=== PATIENT | female | born 1990 | race Asian ===

== ENCOUNTER → 2022-01-09 07:14 | Outpatient (CLI) | payer BC, SELFPAY ==
--- NOTE | ~2022-01-09 | XR_ITS ---
EXAMINATION: XR chest 2V 01/09/2022 08:05 INDICATION: Chronic cough PROCEDURE: 2 view chest COMPARISON: No prior studies for comparison. FINDINGS: The lungs are clear. The cardiomediastinal silhouette is within normal limits. There are no pleural effusions. There is no pneumothorax suspected. IMPRESSION: 1: NO ACUTE CARDIOPULMONARY DISEASE. Reviewed, dictated and finalized at location D.
== END ==
PROVIDERS: PCP Family Medicine; Visit Provider Family Medicine
DX: R05.3 Chronic cough (principal)
CPT/HCPCS: 71046

== ENCOUNTER 2022-01-12 10:02 | Emergency (ER) | payer BC, SELFPAY ==
--- NOTE | 2022-01-12 10:21 | ED.URI ---
HPI - URI/Sore Throat General Chief Complaint: Upper Respiratory Infection Stated Complaint: cough Time Seen by Provider: 01/12/22 10:21 Source: patient Mode of arrival: ambulatory Limitations: no limitations History of Present Illness HPI Narrative: Ms. Oneil is a 31-year-old female patient presenting to the clinic today with complaints of a cough since August She reports she had COVID in August and has had this cough ever since. She just seen her PCP 3 days ago and was given prescription for a Z-Jason and she had an x-ray done. She is currently using albuterol inhaler which does help for a couple hours. She has not been on any steroids at all. Her x-ray was negative for any acute cardiopulmonary disease per Dr. Elam on 09 January. Patient reports that her cough continues and that she is having difficulty when laying down as she is coughing excessively. She reports that she is bringing up clear phlegm with her cough. She denies any fever or chills. Related Data Home Medications Medication Instructions Recorded Confirmed albuterol sulfate 90 mcg/actuation 2 puff inhalation Q4H 12/25/21 01/12/22 aerosol inhaler azithromycin 250 mg tablet 1 mg PO DIRECTED 01/12/22 01/12/22 (Zithromax Z-Jason) norethindrone 1 mg-ethinyl 1 tablet DAILY 01/12/22 01/12/22 estradiol 20 mcg (24)-iron 75 mg (4) tablet (Blisovi 24 Fe) Allergies Allergy/AdvReac Type Severity Reaction Status Date / Time No Known Allergies Allergy Verified 01/12/22 10:35 Review of Systems Review of Systems: Pertinent positives per HPI. Patient denies any fever, chills, rash, headache, visual changes, dizziness, sore throat, shortness of breath, chest pain, palpitations, nausea, vomiting, diarrhea, constipation, abdominal pain, or any urinary issues. [facility] Past Medical History Medical History COVID-19 GERD without esophagitis Rhinorrhea Family History Family History Father Hypertension Other Diabetes mellitus Social History Social History Second hand tobacco smoke exposure: No Alcohol intake: never Comments At the time of my signature, I reviewed and agree with the nursing past medical, surgical, social, and family history. There is no relevant family history pertinent to the patient complaint. Exam Narrative: General: Well-developed, well nourished, in no apparent distress Head: Normocephalic, atraumatic Eyes: Pupils equally round and reactive to light bilaterally, EOM intact, sclera and conjunctive clear, no discharge, lids normal Ears: TMs intact and clear, ear canals clear, no drainage, grossly hearing normal. Nose: Nares patent, no discharge, no inflammation, no sinus tenderness. Mouth: Oropharynx without lesions or masses, good dentition, MMM. Neck: Supple, trachea midline, no enlargement of anterior or posterior cervical nodes, no thyroid masses or goiter palpable. Cardio: Regular rate and rhythm, s1 and s2 normal, no murmur appreciated. Resp: Inspiratory expiratory rhonchi over the left posterior midlower lobe, lung sounds diminished, unable to take deep breaths without having bronchospasms, rales, wheezing or rubs. SPO2 100% on room air in the clinic Course Course Emergency Course: Portions of this record may have been created with voice recognition software. Level of Care: Express Care Visit Vital Signs Vital signs: Vital signs reviewed MDM - URI/Sore Throat MDM Narrative Medical decision making narrative: At the time of visit patient is resting comfortably on the exam table. Patient is currently taking albuterol inhaler and a Z-Jason. Her SPO2 was 100% on room air in the clinic. She is unable to take a deep breath due to bronchospasms and she is feeling short of breath with this cough. Cough is productive with clear p
[2022-01-12 10:31] VITALS: BP 119/78; PULSE 80; RESP 18; TEMP 37.6; O2SAT 100
== END 2022-01-12 10:52 | disposition home or self-care (01) ==
PROVIDERS: Emergency Provider Nurse Practitioner Family; PCP Family Medicine
DX: R05.9 Cough, unspecified (principal); U09.9 Post COVID-19 condition, unspecified; J40 Bronchitis, not specified as acute or chronic; J98.01 Acute bronchospasm; K21.9 Gastro-esophageal reflux disease without esophagitis
CPT/HCPCS: 99213; G0463

== ENCOUNTER 2022-02-15 07:02 | Outpatient (CLI) | payer BC, SELFPAY ==
[2022-02-18 23:30] LABS: Immunoglobulin E <2 kU/L (<=114)
[2022-02-19 06:34] LABS: Alpha-1-Antitrypsin, QN 213 mg/dL (83-199)
== END 2022-02-15 07:03 | disposition home or self-care (01) ==
LOC: ANHLAB 07:04
PROVIDERS: PCP Family Medicine; Visit Provider Internal Medicine Critical Care Medicine
DX: U09.9 Post COVID-19 condition, unspecified (principal); R05.3 Chronic cough
CPT/HCPCS: 36415; 82103; 82104; 82785

== ENCOUNTER 2022-02-16 09:49 | Outpatient (CLI) | payer BC, SELFPAY ==
--- NOTE | 2022-02-23 15:55 | P.PCNPFT_ITS ---
PFT Procedure Performed PFT Procedure Performed Spirometry with Pre/Post Bronchodilator Plethysmography (Lung Vol) Diffusing Cap (DLCO) Flow Vol Loop PFT Interpretation DOS: 02/16/2022 REQUESTING: Dr Worley REASON FOR TESTING: Chronic cough PULMONARY FUNCTION TESTS Results are reliable and reproducible. This patient had COVID August 2021. Spirometry: Pre bronchodilator FEV1 is 81%, 2.93 L, within the normal range. pre bronchodilator FVC is 91%, 3.95 L, normal. FEV1/FVC is 74%, within the n ormal range. QYT31-36% is 62%, 2.37 L, below normal. After bronchodilator administration there is a 10% increase in the FEV1 which does not meet ATS criteria for significance. The post bronchodilator FEV1 is 3.22 L 290 mL. The FVC increases by 2% essentially unchanged. The HML56-60% increases by 35% and is now 3.2 L which is in the normal range. This pattern is consistent with small airways obstruction with good response to bronchodilator Lung volumes: Total lung capacity is 88%, 4.97 L, normal. Functional reserve capacity 86%, 2.71 L, normal. ERV 99%, 1.37 L, normal. Residual volume 62%, 1.01 L, normal. RV/TLC is 20%, normal. There is no hyperinflation or air trapping. Raw is 123%, normal. Diffusion: DLCO is 106%, normal. DLCO/VA is 125%. Flow volume loop: Normal. IMPRESSION: This study shows a small airway obstructive pattern with good response to bronchodilator, normal lung volumes and normal diffusion. In the proper clinical setting this may be compatible with asthma. Lack of response to bronchodilator should not preclude use if clinically indicated. Shari Worley MD
--- NOTE | 2022-02-26 16:46 | WPDPFTINT ---
PFT Procedure Performed PFT Procedure Performed Spirometry with Pre/Post Bronchodilator Plethysmography (Lung Vol) Diffusing Cap (DLCO) Flow Vol Loop PFT Interpretation This is a pulmonary function test with pre and post-bronchodilator spirometry, plethysmography and diffusing capacity. The test was performed and results interpreted in accordance with the 2019 and 2005 ATS/ERS Task Force guidelines respectively using the Global Lung Function Initiative-2012 reference equations. Patient demonstrated good effort and cooperation. Reproducibility criteria were met. The quality of the pre bronchodilator spirometry maneuver was Grade A and post bronchodilator spirometry maneuver was Grade A. Findings: Spirometry: The contour the inspiratory and expiratory flow tracing are normal. The pre bronchodilator FVC is 3.96 L, 91% predicted. The pre bronchodilator FEV1 is 2.93 L, 81% predicted. The pre bronchodilator FEV1: FVC ratio 74%. The post bronchodilator FVC is 4.03 L, representing a 2% increase. The post bronchodilator FEV1 is 3.22 L, representing a 10% increase. The post bronchodilator FEV1: FVC ratio is 80%. Plethysmography: The total lung capacity is 4.97 L, 88% predicted. The functional residual capacity is 2.71 L, 86% predicted. The residual volume is 1.01 L, 62% predicted. Diffusion capacity: The diffusion capacity unadjusted for hemoglobin and carboxyhemoglobin is 28.0, 106% predicted. The diffusion capacity adjusted for alveolar volume is 5.87, 125% predicted. Impression: The spirometry is normal without evidence of an obstructive abnormality. There is no significant improvement after inhaling a single dose of albuterol. The lung volumes are normal. The diffusing capacity is normal. There are no prior studies for comparison
== END 2022-02-16 09:50 | disposition home or self-care (01) ==
LOC: ANHPFT 09:51
PROVIDERS: PCP Family Medicine; Visit Provider Internal Medicine Critical Care Medicine
DX: R05.3 Chronic cough (principal); U09.9 Post COVID-19 condition, unspecified
CPT/HCPCS: 94060; 94726; 94729

== ENCOUNTER 2022-03-05 13:32 | Outpatient (CLI) | payer BC, SELFPAY ==
--- NOTE | ~2022-03-05 | CT_ITS ---
EXAMINATION:CT chest high resolution [facility] DATE: 03/05/2022 13:48 INDICATION: Chronic cough. TECHNIQUE: Computed tomography (CT) of the chest was performed without intravenous contrast. Automate d exposure control and iterative reconstruction technique were employed. The dose-length product (DLP ) was 149.67 mGy-cm. COMPARISON: Chest 2 views 01/09/22 FINDINGS: The lungs are normal. No pleural effusion. The heart size is normal. No pericardial effusio n. There are healing fractures of the right third and sixth ribs. IMPRESSION: 1. Normal lungs. Reviewed, dictated and finalized at location A. IMPRESSION: 1. Normal lungs.
== END 2022-03-05 13:33 | disposition home or self-care (01) ==
PROVIDERS: PCP Family Medicine; Visit Provider Internal Medicine Critical Care Medicine
DX: R05.3 Chronic cough (principal); U09.9 Post COVID-19 condition, unspecified
CPT/HCPCS: 71250

== ENCOUNTER 2022-11-16 08:03 | Emergency (ER) | payer BC, SELFPAY ==
--- NOTE | 2022-11-16 08:09 | ED.URI ---
HPI - URI/Sore Throat General Chief Complaint: Upper Respiratory Infection Stated Complaint: cough,sorethroat,bilateral earache Time Seen by Provider: 11/16/22 08:10 Source: patient Mode of arrival: ambulatory Limitations: no limitations History of Present Illness HPI Narrative: Yulisa is a 32-year-old female patient presenting to the clinic today with complaints of cough, sore throat, and bilateral ear pain times 1 week. She reports she is bringing up some thick lorenzo phlegm. She denies any fever or chills. Denies any shortness of breath but does feel nasally congested. States she just got back from [place]. History of asthma. MD elicited complaint: sore throat and nasal congestion Related Data Allergies Allergy/AdvReac Type Severity Reaction Status Date / Time No Known Allergies Allergy Verified 11/16/22 08:21 Review of Systems Review of Systems: Pertinent positives per HPI. Patient denies any fever, chills, rash, headache, visual changes, dizziness, shortness of breath, chest pain, palpitations, nausea, vomiting, diarrhea, constipation, abdominal pain, or any urinary issues. PMFSH Past Medical History Medical History COVID-19 GERD without esophagitis Rhinorrhea Family History Family History Father Hypertension Other Diabetes mellitus Social History Social History Smoking status: Never smoker Second hand tobacco smoke exposure: No Alcohol intake: never Substance use: never Substance use type: does not use Lack of Transportation: No Lack of Food: Never True Current Housing: I Have Housing Concerned About Future Housing: No Difficulty Paying Gas/Electric Bills: No Difficulty Paying for Meds: No Currently Unemployed: No Education: High School Diploma/GED Difficulty w/ Childcare or Family Care: No Occupation/Education: occupation Gender identity (if verbalized by the patient): Female Agree to blood products: Yes Comments At the time of my signature, I reviewed and agree with the nursing past medical, surgical, social, and family history. There is no relevant family history pertinent to the patient complaint. Exam Narrative: General: Well-developed, well nourished, in no apparent distress Head: Normocephalic, atraumatic Eyes: Pupils equally round and reactive to light bilaterally, EOM intact, sclera and conjunctive clear, no discharge, lids normal Ears: TMs intact and clear, ear canals clear, no drainage, grossly hearing normal. Nose: Nares patent, clear nasal discharge, no inflammation, no sinus tenderness. Mouth: Oral pharynx mildly red without lesions or masses, good dentition, MMM. Postnasal drip Neck: Supple, trachea midline, no enlargement of anterior or posterior cervical nodes, no thyroid masses or goiter palpable. Cardio: Regular rate and rhythm, s1 and s2 normal, no murmur appreciated. Resp: Clear to auscultation bilaterally, no rhonchi, rales, wheezing or rubs Course Course Emergency Course: Portions of this record may have been created with voice recognition software. Level of Care: Express Care Visit Vital Signs Vital signs: Vital signs reviewed MDM - URI/Sore Throat MDM Narrative Medical decision making narrative: At the time of visit patient is resting comfortably on the exam table. Strep screen was negative in the clinic today. I suspect patient has an upper respiratory infection. Lung sounds are clear in the clinic today. Will send in prescription for prednisone to help with the nasal congestion. Supportive measures were discussed with the patient she voiced understanding of discharge instructions and agrees to treatment plan Differential Diagnosis Differential diagnosis: Likely upper respiratory infection, otitis media, sinusitis, viral infection, bronchi
[2022-11-16 08:16] VITALS: BP 125/68; PULSE 111; RESP 18; TEMP 37.4; O2SAT 98
== END 2022-11-16 08:39 | disposition home or self-care (01) ==
PROVIDERS: Emergency Provider Nurse Practitioner Family; PCP Family Medicine
DX: J06.9 Acute upper respiratory infection, unspecified (principal); R05.9 Cough, unspecified; K21.9 Gastro-esophageal reflux disease without esophagitis; Z86.16 Personal history of COVID-19; J45.909 Unspecified asthma, uncomplicated
CPT/HCPCS: 87081; 87880; 99213; G0463

== ENCOUNTER 2023-01-29 10:58 | Outpatient (CLI) | payer BC, SELFPAY | END 2023-01-29 10:59 | PROVIDERS: PCP Family Medicine; Visit Provider Family Medicine | DX: M79.672 Pain in left foot (principal) | CPT/HCPCS: 73630 ==

== ENCOUNTER → 2023-04-09 11:04 | Outpatient (CLI) | payer BC, SELFPAY ==
--- NOTE | ~2023-04-09 | XR_ITS ---
EXAMINATION:XR_[id number]_CR DATE: 04/09/2023 11:28 INDICATION: Neck pain TECHNIQUE: AP, lateral, and odontoid views of the cervical spine are provided. COMPARISON: None FINDINGS: Alignment is normal. The odontoid process is intact. No fracture is identified. Vertebral b brandyn heights and disk spaces are normal. Prevertebral soft tissues are normal. Small degenerative oste ophytes project from the anterior endplates of multiple vertebral bodies. IMPRESSION: 1. No acute osseous abnormality. Reviewed, dictated and finalized at location L.
== END ==
PROVIDERS: PCP Family Medicine; Visit Provider Family Medicine
DX: M54.2 Cervicalgia (principal)
CPT/HCPCS: 72040

== ENCOUNTER 2024-07-04 12:08 | Emergency (ER) | payer BC, SELFPAY ==
[2024-07-04 12:23] VITALS: BP 137/89; PULSE 89; RESP 16; TEMP 36.6; O2SAT 100
--- NOTE | 2024-07-04 12:51 | ED.NECK ---
HPI - Neck Pain/Injury General Chief Complaint: Neck Pain/Injury Stated Complaint: Neck Pain/Headache Time Seen by Provider: 07/04/24 12:35 Source: patient Mode of arrival: ambulatory Limitations: no limitations History of Present Illness HPI Narrative: Yulisa is a 33-year-old female patient presenting to the clinic today with complaints right-sided neck pain causing her headache. She reports symptoms started approximately 5 days ago however headache started yesterday. States is painful to turn her head from side to side as she is having pain on the right side of the neck. Has been taking ibuprofen for her symptoms without much relief. Denies any numbness or tingling going down her right arm. Denies any chest pain or shortness of breath. Related Data Home Medications Medication Instructions Recorded Confirmed drospiren-e.estrad-l.mefol 3 1 tablet PO DAILY 04/03/24 04/03/24 mg-0.02 mg-0.451 mg(24)/0.451 mg(4)tablet Allergies Allergy/AdvReac Type Severity Reaction Status Date / Time No Known Allergies Allergy Verified 04/03/24 07:54 Review of Systems Review of Systems: Pertinent positives per HPI. Patient denies any fever, chills, rash, headache, visual changes, dizziness, cough, shortness of breath, chest pain, palpitations, nausea, vomiting, diarrhea, constipation, abdominal pain, or any urinary issues. [facility] Past Medical History Medical History Anxiety Asthma COVID-19 Depression with anxiety Elevated cortisol level Fatigue GERD without esophagitis Night sweat Rhinorrhea Vitamin D deficiency Family History Family History Father Hypertension Other Diabetes mellitus Social History Social History (Updated 04/03/24 @ 07:58 by Luda Thomas) Social History: Caffeine-coffee Smoking status: Never smoker Second hand tobacco smoke exposure: No Alcohol intake: never Substance use: never Substance use type: does not use Do You Feel Safe in your Home?: Yes Lack of Transportation: No Lack of Food: Never True Current Housing: I Have Housing Concerned About Future Housing: No Difficulty Paying Gas/Electric Bills: No Difficulty Paying for Meds: No Currently Unemployed: No Education: High School Diploma/GED Difficulty w/ Childcare or Family Care: No Occupation/Education: occupation Gender identity (if verbalized by the patient): Female Agree to blood products: Yes Comments At the time of my signature, I reviewed and agree with the nursing past medical, surgical, social, and family history. There is no relevant family history pertinent to the patient complaint. Exam Narrative: General: Well-developed, well nourished, in no apparent distress Head: Normocephalic, atraumatic Eyes: Pupils equally round and reactive to light bilaterally, EOM intact, sclera and conjunctive clear, no discharge, lids normal Ears: TMs intact and clear, ear canals clear, no drainage, grossly hearing normal. Nose: Nares patent, no discharge, no inflammation, no sinus tenderness. Mouth: Oral pharynx without lesions or masses, good dentition, MMM. Neck: Supple, trachea midline, no enlargement of anterior or posterior cervical nodes, tenderness to palpation over the posterior lateral right cervical musculature, pain with turning her head to the right against resistance, slight discomfort with hyperextension and flexion of the neck no thyroid masses or goiter palpable. Cardio: Regular rate and rhythm, s1 and s2 normal, no murmur appreciated. Resp: Clear to auscultation bilaterally, no rhonchi, rales, wheezing or rubs Course Course Emergency Course: Portions of this record may have been created with voice recognition software. Level of Care: Express Care Visit Vital Signs Vital signs: Vital Signs Temperature 36.6 C 07/04/24 12:23 Pulse Rate 89 07/04/24 12:23 Respiratory Rate 16 07/04/24 12:23 Blood Pressure 137/89 07/04/24 12:23 Pulse Oximetry 100 07/04/24 12:23 Temperature 36.6 C 07/04/24 12:23 Pulse Rate 89 07/04/24 12:23 Respiratory Rate 16 07/04/24 12:23 Blood Pressure 137/89 07/04/24 12:23 Pulse Oximetry 100 07/04/24 12:23 Vital signs reviewed MDM - Neck Pain/Injury MDM Narrative Medical decision making narrative: At the time of visit patient is resting comfortably on the exam table. Patient appears to be nontoxic. Plan: I suspect patient has right-sided posterior lateral cervical strain. Prescription for baclofen and ibuprofen was sent to the pharmacy. Supportive measures were discussed with the patient and they voiced understanding discharge instructions and agrees to treatment plan. Return precautions reviewed Differential Diagnosis Differential diagnosis: Likely disc disorder of cervical region, whiplash injury to neck, closed subluxation of cervical spine, fracture of cervical spine without lesion of spinal cord, cervical radiculopathy, vertebral artery dissection, torticollis, cervical spondylosis and strain of neck muscle Discharge Plan Discharge Clinical Impression: Posterolateral cervical muscle strain Patient Disposition: Home, Self-Care Condition: Stable Instructions: Antibiotic Form, Cervical Strain (ED) Additional Instructions: Take any prescription medication only as prescribed-ibuprofen and baclofen Be mindful of sedation precautions given to you if taking a muscle relaxer. May use heat or ice to the affected area Consider massage or chiropractor adjustment if this was discussed with provider May use blue emu, lidocaine patches, or asper cream to affected area- do not apply heat or ice directly over cream- can cause burn. Complete appropriate neck stretching exercises. Follow up with your PCP in 3-5 days if symptom persist. Prescriptions: New ibuprofen 800 mg tablet 800 mg PO TID PRN (Reason: pain) 7 Days Qty: 21 0RF baclofen 10 mg tablet 10 mg PO TID PRN (Reason: muscle spasm) 7 Days Qty: 21 0RF No Action fluoxetine [Prozac] 20 mg capsule 20 mg PO DAILY Qty: 90 1RF drospirenone-e.estradiol-lm.FA 3-0.02-0.451 mg (24) (4) tablet 1 tablet PO DAILY (DME) Insoles See Rx Instructions .Route .MEDSUPPLY Qty: 1 0RF Rx Instructions: CPT L3000 Follow-up/Referrals: Lalo Higuera MD [Primary Care Provider] - Time of Disposition: 12:53 Quality NIHSS Nursing Documentation ED NIHSS nursing documentation: reviewed/agree
== END 2024-07-04 13:00 | disposition home or self-care (01) ==
PROVIDERS: Emergency Provider Nurse Practitioner Family; PCP Family Medicine
DX: S16.1XXA Strain of muscle, fascia and tendon at neck level, initial encounter (principal); X58.XXXA Exposure to other specified factors, initial encounter; J45.909 Unspecified asthma, uncomplicated; K21.9 Gastro-esophageal reflux disease without esophagitis; Z86.16 Personal history of COVID-19
CPT/HCPCS: 99213; G0463

== ENCOUNTER 2024-10-28 08:39 | Outpatient (CLI) | payer BC, SELFPAY ==
--- NOTE | ~2024-10-28 | MMUS_ITS ---
EXAMINATION: MM diagnostic monika BI w godfrey, US breast BI limited HISTORY: 34-year-old woman with no significant family or personal history of breast cancer presents w ith right inferior breast pain. No history of trauma TECHNIQUE: Craniocaudal and mediolateral oblique 3-D tomosynthesis images were obtained and synthetic 2-D images were generated. CAD analysis was submitted and interpreted. High resolution limited bilateral breast ultrasound was performed. COMPARISON: None. Today's examination will be treated as patient's baseline study. BREAST PARENCHYMAL COMPOSITION:Dense: The breasts are heterogeneously dense, which may obscure small masses. FINDINGS: MAMMOGRAPHIC FINDINGS: Possible asymmetry within the upper outer left breast approximately 4 to 5 cm from the nipple for whi ch focused ultrasound will be performed. Additional possible asymmetry within the lower outer right breast, for which focused ultrasound will be performed. Punctate calcifications are detected bilaterally, morphologically benign in appearance. Otherwise unremarkable parenchymal pattern without suspicious microcalcifications or architectural di stortion. ULTRASOUND: Within the area of clinical concern (the lower right breast) ultrasound demonstrates benign fibroglan dular tissue without a cystic or solid lesion of concern. Within the upper outer left breast approximately 4 to 5 cm from the nipple ultrasound demonstrates ex ceedingly dense fibroglandular tissue with ligamentous thickening, and without a cystic or solid lesi on of concern. IMPRESSION: No mammographic/tomographic or sonographic evidence to suggest the presence of malignancy. Further evaluation of right breast pain should be performed on a clinical basis. Follow-up as per ACR/ACS guidelines is recommended. BI-RADS Category 2: Benign finding(s). Reviewed, dictated and finalized at location A. IMPRESSION: No mammographic/tomographic or sonographic evidence to suggest the presence of malignancy. Further evaluation of right breast pain should be performed on a clinical basis . Follow-up as per ACR/ACS guidelines is recommended. BI-RADS Category 2: Benign finding(s).
== END 2024-10-28 08:40 | disposition home or self-care (01) ==
LOC: MICIMG 08:42
PROVIDERS: PCP Student in an Organized Health Care Education/Training Program; Visit Provider Student in an Organized Health Care Education/Training Program
DX: N64.4 Mastodynia (principal)
CPT/HCPCS: 76642; 77062; 77066; G0279

== ENCOUNTER 2025-03-16 17:57 | Emergency (ER) | payer BC, SELFPAY ==
--- OUTSIDE RECORDS SUMMARY | 2025-03-16 17:59 | XMS_ITS | Patient Health Record ---
Author Organization [facility] As [facility] Address [address] [place] [address] Care Team Providers Care Caseworker Name Role Phone Moose Higuera MD Primary Care Provider Unavailable Meka Bazan Unavailable [phone] Allergies No Known Allergies Results Component Value Reference Range Notes UDT Reviewed date:04/24/2024 09:47:10 AM Interpretation: Performing Lab: Notes/Report: THC n 0 - 50 ng/ml Cocaine n 0 - 300 ng/ml Amphetamine n 0 - 1000 ng/ml Buprenorphine (BUP) n 0 - 10 ng/ml Secobarbital (Bar) n 0 - 300 ng/ml Oxazepam (BZO) n 0 - 300 ng/ml 2-mwvzaynotd-2,3-euxpafii-8,3-diphenylpyrrolidine (BAUDILIO P) n 0 - 300 ng/ml Methamphetamine (MET) n 0 - 1000 ng/ml Methylenedioxymethamphetamine (MDMA) n 0 - 500 ng/ml Morphine (MOP 300/[id number]) n 0 - 300 ng/ml Methadone (MTD) n 0 - 300 ng/ml Phencyclidine (PCP) n 0 - 25 ng/ml Nortriptyline (TCA) n 0 - 1000 ng/ml Oxycodone n 0 - 300 ng/ml x n 0 - 300 ng/ml Test Reviewed date:04/24/2024 09:47:10 AM Interpretation: Performing Lab: Notes/Report: Test urine n 0 - 0 Reason For Referral No Information Medications Medication SIG (Take, Route, Frequency, Duration) Notes Start Date End Date Status Albuterol Sulfate HFA 108 (90 Base) MCG/ACT INHALE 2 PUFFS BY MOUTH EVERY 4 HOURS NEEDED FOR SHORTNESS OF BREATH OR WHEEZING Inhalation; Duration: 16 Days Active Tri-Sprintec 0.18/0.215/0.25 MG-35 MCG 1 tablet Orally Once a day Active QUEtiapine Fumarate 50 MG 1 tablet at be dtime Orally Once a day; Duration: 90 days Active buPROPion HCl ER (XL) 300 MG 1 tablet in the morning Orally Once a day; Duration: 30 days Active buPROPion HCl ER (XL) 300 MG 1 tablet in the morning Orally Once a day; Duration: 90 days Active Social History Tobacco Use: Social History Observation Description Date Details (start date - stop date) Never Smoker NA - NA Sex Assigned At : Social History Observation Description Sex Assigned At Female Tobacco Control (Standard) Question Answer Notes Tobacco use: Nonsmoker AUDIT-C (Standard) Question Answer Notes Did you have a drink containing alcohol in the p ast year? 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) Active confirmed Vital Signs Heart Rate 86 /min 10/07/2024 Height-cm 172.72 cm 10/07/2024 Blood pressure diastolic 84 mm Hg 10/07/2024 Weight-kg 89.81 kg 10/07/2024 Height 68 in 10/07/2024 Blood pressure systolic 125 mm Hg 10/07/2024 Weight 198 lbs 10/07/2024 BMI 30.1 kg/m2 10/07/2024 Encounters Encounter Location Date Provider Diagnosis [facility] [address] [facility] [address] [facility] [address] [place] [address] 04/24/2024 Meka Bazan MDD (major depressive disorder), recurrent severe, without psychosis F33.2 and SAWYER (generalized anxiety disorder) F41.1 [facility] [address] [facility] [address] [facility] [address] [place] [address] 05/20/2024 Meka Bazan MDD (major depressive disorder), recurrent severe, without psychosis F33.2 and SAWYER (generalized anxiety disorder) F41.1 [place] [address] [address] 06/23/2024 Meka Kurilla MDD (major depressive disorder), recurrent severe, without psychosis F33.2 and SAWYER (generalized anxiety disorder) F41.1 [place] [address] [address] 08/17/2024 Meka Kurilla MDD (major depressive disorder), recurrent severe, without psychosis F33.2 and SAWYER (generalized anxiety disorder) F41.1 [place] [address] [address] 10/07/2024 Meka Kurilla MDD (major depressive disorder), recurrent severe, without psychosis F33.2 and SAWYER (generalized anxiety disorder) F41.[address] [address] 02/25/2025 Meka Kurilla [place] [address] [address] 11/09/2024 Meka Kurilla MDD (major depressive disorder), recurrent severe, without psychosis F33.2 [place] [address] [facility] [address] [address] 12/14/2024 Meka Kurilla MDD (major depressive disorder), recurrent severe, without psychosis F33.[address] [address] 02/08/2025 Meka Kurilla MDD (major depressive disorder), recurrent severe, without psychosis F33.[address] [address] 02/08/2025 Meka Kurilla MDD (major depressive disorder), recurrent severe, without psychosis F33.2 [place] [address] [address] [facility] [address] [address] 03/11/2025 Meka Kurilla MDD (major depressive disorder), recurrent severe, without psychosis F33.2 Assessments Encounter Date Diagnosis (ICD Code) Assessment Notes Treatment Notes Treatment Clinical Notes Section Notes 04/24/2024 MDD (major depressive disorder), recurrent severe, without psychosis (ICD-10 - F33.2) Common side effects of Wellbutrin include insomnia, increased anxiety, nausea, dizziness, decreased appetite, restlessness, irritability and anger, increased sweating or hot flashes, tremors, joint pain. Wellbutrin is not recommended in individuals with a history of seizures. If side effects persist, please contact the office. 05/20/2024 MDD (major depressive disorder), recurrent severe, without psychosis (ICD-10 - F33.2) Common side effects of Wellbutrin include insomnia, increased anxiety, nausea, dizziness, decreased appetite, restlessness, irritability and anger, increased sweating or hot flashes, tremors, joint pain. Wellbutrin is not recommended in individuals with a history of seizures. If side effects persist, please contact the office. 06/23/2024 MDD (major depressive disorder), recurrent severe, without psychosis (ICD-10 - F33.2) Common side effects of Wellbutrin include insomnia, increased anxiety, nausea, dizziness, decreased appetite, restlessness, irritability and anger, increased sweating or hot flashes, tremors, joint pain. Wellbutrin is not recommended in individuals with a history of seizures. If side effects persist, please contact the office. 08/17/2024 MDD (major depressive disorder), recurrent severe, without psychosis (ICD-10 - F33.2) Common side effects of Wellbutrin include insomnia, increased anxiety, nausea, dizziness, decreased appetite, restlessness, irritability and anger, increased sweating or hot flashes, tremors, joint pain. Wellbutrin is not recommended in individuals with a history of seizures. If side effects persist, please contact the office. 10/07/2024 MDD (major depressive disorder), recurrent severe, without psychosis (ICD-10 - F33.2) Common side effects of Wellbutrin include insomnia, increased anxiety, nausea, dizziness, decreased appetite, restlessness, irritability and anger, increased sweating or hot flashes, tremors, joint pain. Wellbutrin is not recommended in individuals with a history of seizures. If side effects persist, please contact the office. 11/09/2024 MDD (major depressive disorder), recurrent severe, without psychosis (ICD-10 - F33.2) 12/14/2024 MDD (major depressive disorder), recurrent severe, without psychosis (ICD-10 - F33.2) 02/08/2025 MDD (major depressive disorder), recurrent severe, without psychosis (ICD-10 - F33.2) 02/08/2025 MDD (major depressive disorder), recurrent severe, without psychosis (ICD-10 - F33.2) 03/11/2025 MDD (major depressive disorder), recurrent severe, without psychosis (ICD-10 - F33.2) 04/24/2024 SAWYER (generalized anxiety disorder) (ICD-10 - F41.1) Common side effects to SSRI medications include headaches, dry mouth/eye, GI upset (including indigestion, nausea, diarrhea), sleeping problems (insomnia or drowsiness), decreased libido, blurred vision, dizziness. Generally, side effects will subside or lessen with time and are common during drug initiation and dose changes. If they persist please contact the office. 10/07/2024 SAWYER (generalized anxiety disorder) (ICD-10 - F41.1) 08/17/2024 SAWYER (generalized anxiety disorder) (ICD-10 - F41.1) 06/23/2024 SAWYER (generalized anxiety disorder) (ICD-10 - F41.1) SSRI/SNRI side effects discussed including but not limited to, gastric upset, nausea, vomiting, diarrhea and/or constipation, weight changes, sexual side effects including loss of libido, increased suicidal thoughts/behavio rs in children and young adults, and serotonin syndrome. 05/20/2024 SAWYER (generalized anxiety disorder) (ICD-10 - F41.1) 04/24/2024 Other Decrease fluoxetine to 10mg daily due to night sweats. Start Wellbutrin 150mg daily for mood, motivation. Monitor weight gain. Patient educated on all medications including potential benefits, side effects, risks. Educated on proper dosing schedule and importance of compliance. UDT and test negative. 05/20/2024 Other Increase Wellbutrin to 300mg daily for mood Discontinue fluoxetine due to night sweats, ineffectiveness. Patient educated on all medications including potential benefits, side effects, risks. Educated on proper dosing schedule and importance of compliance. 06/23/2024 Other Continue Wellbutrin 300mg daily Start vilazodone 10mg daily for mood, anixety; discussed to take with food. Patient educated on all medications including potential benefits, side effects, risks. Educated on proper dosing schedule and importance of compliance. Continue counseling 08/17/2024 Other Reporting poor sleep, could be contributing to low motivation, lack of energy. Tried trazodone in the past which caused nightmares. Start quetiapine 25-50mg qHS for sleep, mood. Stop vilazodone due to nausea. Patient educated on all medications including potential benefits, side effects, risks. Educated on proper dosing schedule and importance of compliance. Cont counsleing -Assessment and treatment plan reviewed with patient. -Compliance with treatment plan importance discussed. -Discussed the risks/benefits of this medication -Discussed medication side effects. -Contact office if symptoms worsen. -Discussed that it can take up to 6-8 weeks to see full therapeutic effects of psychotropic medications. -Crisis prevention hotline 988. 10/07/2024 Other Stable, cont current medications. Refills sent in today. Patient educated on all medications including potential benefits, side effects, risks. Educated on proper dosing schedule and importance of compliance. Cont counseling -Assessment and treatment plan reviewed with patient. -Compliance with treatment plan importance discussed. -Discussed the risks/benefits of this medication -Discussed medication side effects. -Contact office if symptoms worsen. -Discussed that it can take up to 6-8 weeks to see full therapeutic effects of psychotropic medications. -Crisis prevention hotline 988. Plan Of Treatment Next Appt Details Provider Name:Meka Greg burnett, 03/19/2025 08:30:00 AM, [address], [place], [address], Insurance Providers Payer Name Payer Address Payer Phone Subscriber Number Group Number Insured Name Patient Relationship to Insured Coverage Start Date Coverage End Date [facility] [address] [place] [address] [id number] MACY TAYLOR Self - patient is the insured Medical (General) History Medical History History ICD Code anxiety asthma depression with anxiety Fatigue GERD Vit D Deficiency Past Psychiatric History: Anxiety Disord er,Panic Disorder undefined abdominal aortic aneurysm: No atrial fibrillation: No chronic fatigue syndrome: Yes essential tremor: Yes hyperlipidemia: No hypertension: No Parkinson's disease: No restless leg syndrome: Yes stroke: No subdural hematoma: No type 1 diabetes mellitus: No type 2 diabetes mellitus: No vitamin B12 deficiency: No vitamin D deficiency: Yes
--- OUTSIDE RECORDS SUMMARY | 2025-03-16 17:59 | XMS_ITS | Clinical Summary ---
Author Organization [facility] Address [address] [place] [address] Phone Care Team Providers Care Mother'S Helper Name Role Phone Moose Higuera MD Primary Care Provider Medications Norethin Jerry-Eth Estrad-FE (MICROGESTIN 24 FE PO) Take by mouth daily. Active Family History Medical History Relation Name Comments Bipolar Disorder Paternal Grandmother Relation Name Status Comments Paternal Grandmother Social History Tobacco Use Types Packs/Day Years Used Date Smoking Tobacco: Never Smokeless Tobacco: Never Alcohol Use Standard Drinks/Week Comments Never 0 (1 standard drink = 0.6 oz pur e alcohol) AUDIT-C Answer Date Recorded Q1: How often do you have a drink containing alc ohol? Never 02/12/2020 Average Number of Drinks Not on file 020 Frequency of Binge Drinking Not on file 02/02 PHQ-2 Answer Date Recorded Total Score - Questions 1-9 13 02/02 Education Answer Date Recorded What is the highest level of school you have completed or the highest degree you have received? High school graduate 02/12/2020 Sexually Active Control Partners Comments Not Currently Comments Unknown Sex and Gender Information Value Date Recorded Sex Assigned at Not on file Legal Sex Female 2:46 PM CDT Gender Identity Not on file Sexual Orientation Not on file Occupation Industry Job Start Date Job End Date [employer] Not on file Not on file Not on file Plan of Treatment Health Maintenance Due Date Last Done Comments Hepatitis C Virus (HCV) Screening 1990 Hepatitis B Immunization (1 of 3 - 19+ 3-dose series) 2008 Pap Smear 2010 Human Papillomavirus (HPV) Immunization (1 - 3-dose SCDM series) 2016 Cervical Cancer Screening (CCS) 10/05/2019 HPV/Cotest 10/05/2019 SARS-COV-2 Immunization ( season) 2024 12/01/2020, 11/03/2020 Influenza Immunization (#1) 2025 Respiratory Syncytial Virus (RSV) Immunization (Adult) (1 - 1-dose 75+ series) 2064 DTaP/Tdap/Td Immunization Discontinued 03/26/2019 TdaP Immunization Completed 03/26/2019 Meningococcal Immunization (ACWY) Aged Out No longer eligible based on patient's age to complete this topic Pneumococcal Immunization Combined Aged Out No longer eligible based on patient's age to complete this topic Rotavirus Immunization Aged Out No lo nger eligible based on patient's age to complete this topic Goals Goal Patient Goal Type Associated Problems Recent Progress Patient-Stated? Author Behavioral Health Behavioral Health Yes Ashley Armstrong, [facility] Note: Yulisa reported she desired to received referral(s) to psychiatry specialty providers to obtain DNA testing to determine medication treatment options. Insurance [facility] Care Teams Mother'S Helper Relationship Specialty Start Date End Date Moose Higuera MD PCP - General Family Medicine 02/12/20
--- OUTSIDE RECORDS SUMMARY | 2025-03-16 17:59 | XMS_ITS ---
Author Organization [facility] [employer] [facility] Address [facility] [facility] [address] [place] [address] Care Team Providers Care Repair Mechanic Name Role Phone Davida LYN, Moose Primary Care Provider Unavailable Meka Bazan [phone] REASON FOR VISIT Pt sent a request to r/s on appt resource. to 03/01. Social History Sex Assigned At : Social History Observation Description Sex Assigned At Female Encounters Encounter Location Date Provider Diagnosis [facility] [place] [id number] [facility] [address] [place] [address] 02/25/2025 Meka Bazan Plan Of Treatment Next Appt Details Provider Name:Meka burnett, 03/19/2025 08:30:00 AM, [address], [facility] [address], [place], [address], Progress Notes * MACY TAYLORDOB:1990 (34 yo F)Acc No.[id number]:02/25/2025 Patient: Jose AJ MACY [place] Provider: NEHEMIAH MAR :1990 A ge:34 Y S ex:Female Date:02/25/2025 [address]:[address] [place], [place] [address] Pcp:Moose Haque Subjective: * Chief Complaints: * 1 . Pt sent a request to r/s on appt resource. to 03/01.. * Medical History: Objective: * Vitals: Assessment: Plan: * Treatment: * Billing Information: * Visit Code: * Procedure Codes: * Electronic signature of NEHEMIAH Cordon on 03/16/2025 at 05:58 PM CDT Sign off status: Pending * Provider: NEHEMIAH MAR Date: 0 02/25/2025 Generated for Joaquin colindres/Praveen/Bon on: 0 03/16/2025 05:58 PM CDT
[2025-03-16 18:03] VITALS: BP 136/87; PULSE 79; RESP 16; TEMP 36.8; O2SAT 100
--- NOTE | 2025-03-16 18:25 | ED.NECK ---
HPI - Neck Pain/Injury General Chief Complaint: Neck Pain/Injury Stated Complaint: Neck Pain Time Seen by Provider: 03/16/25 18:15 Source: patient and RN notes reviewed Mode of arrival: ambulatory Limitations: no limitations History of Present Illness HPI Narrative: 34-year-old female presents Express Care complaining of neck pain for approximately 3 weeks. Patient denies any injuries or falls. Patient reports that she has chronic neck issues. Patient says that the pain starts her neck and radiates into her head. Patient denies any vision changes, dizziness, nausea, vomiting, photophobia, phonophobia, focal weakness, slurred speech loss of consciousness or any other symptoms. Patient has been taking a small amount ibuprofen each did help the pain without relief. Patient denies any significant past medical history Related Data Home Medications ?Medication ?Instructions ?Recorded ?Confirmed ?Last Taken ?Type bupropion HCl 300 mg 24 hr tablet, 300 mg PO DAILY 07/07/24 03/16/25 Unknown History extended release norgestimate-ethinyl estradiol 1 tablet PO DAILY 07/07/24 03/16/25 Unknown History 0.18mg/0.215mg/0.25mg-0.035mg(28)tablet (Tri-Sprintec (28)) quetiapine 50 mg tablet 50 mg PO QHS 11/11/24 03/16/25 Unknown History Allergies Allergy/AdvReac Type Severity Reaction Status Date / Time No Known Allergies Allergy Verified 03/16/25 17:59 Review of Systems Review of Systems: CONSTITUTIONAL: Denies fever, chills, or sweats. EYES: Denies visual changes, redness, photophobia, or discharge. ENT: Denies rhinorrhea, congestion, sore throat, phonophobia, or otalgia. CARDIOVASCULAR: Denies chest pain, palpitations, dizziness, lightheadedness, or edema. RESPIRATORY: Denies cough or dyspnea. GASTROINTESTINAL: Denies abdominal pain, nausea, vomiting, or diarrhea. GENITOURINARY: Denies dysuria or hematuria. SKIN: Denies rash or itching. MUSCULOSKELETAL: Denies back pain, joint pain, or myalgia. NEUROLOGIC: Positive for headache. Negative for slurred speech,loss of consciousness, seizures, focal weakness, facial droop, numbness, or weakness. PSYCHIATRIC: Denies anxiety or depression. All other systems reviewed are negative, except as documented in HPI. PMFSH Past Medical History Medical History Elevated cortisol level Night sweat Fatigue Anxiety Depression with anxiety Asthma Vitamin D deficiency COVID-19 Rhinorrhea GERD without esophagitis Family History Family History Father Hypertension Other Diabetes mellitus Social History Social History Social History: Caffeine-coffee Smoking status: Never smoker Second hand tobacco smoke exposure: No Alcohol intake: never Substance use: never Substance use type: does not use Do You Feel Safe in your Home?: Yes Lack of Transportation: No Lack of Food: Never True Current Housing: I Have Housing Concerned About Future Housing: No Difficulty Paying Gas/Electric Bills: No Difficulty Paying for Meds: No Currently Unemployed: No Education: High School Diploma/GED Difficulty w/ Childcare or Family Care: No Occupation/Education: occupation Gender identity (if verbalized by the patient): Female Agree to blood products: Yes Comments At the time of my signature, I reviewed and agree with the nursing past medical, surgical, social, and family history. There is no relevant family history pertinent to the patient complaint. Exam Narrative: GENERAL: This is a well-nourished, well-developed adult, in no apparent distress. They are non ill-appearing, nontoxic appearing. HEAD: normocephalic, atraumatic. EYES: Sclera clear/white. Conjunctiva normal. Vision is grossly intact. Extraocular movements intact. Pupils PERRLA EARS: External ears normal, Hearing grossly intact. NOSE: External nose normal delete THROAT: Mucous membranes moist, NECK: Neck supple, non-tender without lymphadenopathy, masses or thyromegaly. Nontender through full range of motion. Tenderness to palpation throughout the upper trapezius muscle neck. No midline tenderness. No cervical point tenderness, crepitus, or step-offs. CARDIOVASCULAR: Regular rate and rhythm without murmurs, gallops, or rubs. RESPIRATORY: Respiratory rate normal, respiratory effort nonlabored, no respiratory distress SKIN: warm, Dry, intact with no suspicious lesions or rash, good texture and turgor. NEURO: awake, alert, and oriented to person, place and time. There were no obvious focal neurologic abnormalities. EXTREMITIES: No joint tenderness, effusion, or edema noted. BACK: Nontender without deformity. No CVA tenderness. Course Course Emergency Course: Portions of this record may have been created with voice recognition software Level of Care: Express Care Visit Vital Signs Vital signs: Vital Signs Temperature 98.3 F 03/16/25 18:03 Pulse Rate 79 03/16/25 18:03 Respiratory Rate 16 03/16/25 18:03 Blood Pressure 136/87 03/16/25 18:03 Pulse Oximetry 100 03/16/25 18:03 Oxygen Delivery Room Air 03/16/25 18:03 Temperature 98.3 F 03/16/25 18:03 Pulse Rate 79 03/16/25 18:03 Respiratory Rate 16 03/16/25 18:03 Blood Pressure 136/87 03/16/25 18:03 Pulse Oximetry 100 03/16/25 18:03 Oxygen Delivery Room Air 03/16/25 18:03 Reviewed MDM - Neck Pain/Injury MDM Narrative Medical decision making narrative: Patient's neck pain may be related to tension headache. Patient has never been diagnosed with attention headaches. Will prescribe patient short course of baclofen. Patient has been taking a small amount ibuprofen, recommend her to increase the amount of ibuprofen to 600-800 mg ibuprofen every 6-8 hours to see if it helps with the pain along with alternate with Tylenol. Dosing instructions provided in discharge paperwork. Patient advised she may be drowsy while taking baclofen, she states has helped in the past. Advised patient to follow-up PCP in talk about the possibility of having tension headaches and possibly getting prophylactic therapy. Discussed physical exam findings. Advised supportive measures and signs/symptoms to go to the ER. Pt is appropriate for outpt treatment and f/u. Differential Diagnosis Differential diagnosis: Likely cervical spondylosis, strain of neck muscle and other (Tension headaches, headache, migraine) Critical Care Time Critical Care Time Critical Care Time: No Discharge Plan Discharge Clinical Impression: Neck pain Patient Disposition: Home Condition: Stable Instructions: Tension Headache (ED), Neck Pain (ED) Additional Instructions: Take baclofen as directed. Do not drive or operate machinery while taking baclofen as a may make you drowsy. You may take ibuprofen 600 mg to 800 mg every 6-8 hours. Do not exceed more than 800 mg of ibuprofen per dose. Do not exceed more than 3200 mg ibuprofen in a day. You may take up to 1000 mg Tylenol every 6-8 hours. Do not exceed 1000 mg per dose, do exceed more than 4000 mg of Tylenol in a day. You may apply ice or heat 20 minutes at a time, few times a day as needed for pain. Follow-up PCP in 3-5 days. You develop vision changes, severe headaches, neck stiffness, fevers, dizziness, lightheadedness, weakness, slurred speech, confusion, chest pains, breathing problems, loss of conscious or any serious concerns please go to the ER immediately. Patient Language: Citizen Of [place] Prescriptions: New baclofen 10 mg tablet 10 mg PO TID PRN (Reason: Muscle spasms) Qty: 12 0RF No Action bupropion HCl 300 mg tablet extended release 24 hr 300 mg PO DAILY norgestimate-ethinyl estradiol [Tri-Sprintec (28)] 0.18/0.215/0.25 mg-35 mcg (28) tablet 1 tablet PO DAILY quetiapine 50 mg tablet 50 mg PO QHS (DME) Insoles See Rx Instructions .Route .MEDSUPPLY Qty: 1 0RF Rx Instructions: CPT L3000 Follow-up/Referrals: Lalo Higuera MD [Primary Care Provider] - Time of Disposition: 18:18
== END 2025-03-16 18:25 | disposition home or self-care (01) ==
PROVIDERS: PCP Family Medicine
DX: M54.2 Cervicalgia (principal); Z79.899 Other long term (current) drug therapy
CPT/HCPCS: 99213; G0463

== ENCOUNTER 2025-04-28 10:08 | Outpatient (CLI) | payer BC, SELFPAY ==
--- NOTE | ~2025-04-28 | XR_ITS ---
XR_[id number] Indication: Cervicalgia, achy neck x 2 years, no inj, no surgery Comparison: None Findings: The vertebral heights are intact. No fracture or subluxation. The disc heights are intact. Soft tissues unremarkable Impression: No acute abnormality. Reviewed, dictated and finalized at location A. Impression: No acute abnormality.
== END 2025-04-28 10:09 | disposition home or self-care (01) ==
LOC: GOSHIMG 10:09
PROVIDERS: PCP Family Medicine; Visit Provider Family Medicine
DX: M54.2 Cervicalgia (principal)
CPT/HCPCS: 72040

== ENCOUNTER 2025-07-14 07:10 | Outpatient (CLI) | payer BC, SELFPAY ==
--- NOTE | ~2025-07-14 | MR_ITS ---
EXAMINATION: MR cervical spine wo con DATE: 07/14/2025 07:47 INDICATION: Cervical radiculopathy with right-sided neck pain radiating down the right TECHNIQUE: Magnetic resonance imaging (MRI) of the cervical spine was performed without intravenous contrast. Sequences included sagittal T2-weighted FSE, sagittal T2-weighted FS FSE, sagittal T1-weighted FSE, axial MERGE and axial T2- weighted FSE. COMPARISON: None FINDINGS: Bone alignment is normal. Vertebral body heights are normal. Bone marrow signal intensity is normal. Intervertebral disc heights are normal. Cord signal intensity is normal. There is no cervical soft tissues are unremarkable. The following disc levels are specifically discussed: C2-C3: The disc does not extend beyond the endplate margin. There is mild left uncovertebral joint osteoarthritis. There is mild bilateral facet joint osteoarthritis. There is no neural foraminal stenosis. There is negligible central canal stenosis. C3-C4: Disc is mildly bulging. There is mild bilateral uncovertebral joint osteoarthritis. There is mild bilateral facet joint osteoarthritis. There is no neural foraminal stenosis. There is mild central canal stenosis. C4-C5: Disc is mildly bulging. There is mild bilateral uncovertebral joint osteoarthritis. There is mild right and moderate left facet joint osteoarthritis. There is mild left neural foraminal stenosis. There is mild central canal stenosis. C5-C6: Disc is bulging. There is mild bilateral uncovertebral joint osteoarthritis. There is mild right and moderate left facet joint osteoarthritis. There is minimal bilateral neural foraminal stenosis. There is mild central canal stenosis. C6-C7: Disc is mildly bulging. There is mild bilateral uncovertebral joint osteoarthritis. There is mild bilateral facet joint osteoarthritis. There is mild left neural foraminal stenosis. There is no central canal stenosis. C7-T1: The disc does not extend beyond the endplate margin. There is mild right uncovertebral joint osteoarthritis. There is mild bilateral facet joint osteoarthritis. There is mild left neural foraminal stenosis. There is no central canal stenosis. IMPRESSION: 1. Mild cervical spondylosis Reviewed, dictated and finalized at location A. TENDER
== END 2025-07-14 07:11 | disposition home or self-care (01) ==
LOC: MICIMG 07:11
PROVIDERS: PCP Family Medicine; Visit Provider Nurse Practitioner Family
DX: M47.812 Spondylosis without myelopathy or radiculopathy, cervical region (principal)
CPT/HCPCS: 72141